=== PATIENT | male | born 1965 | race Caucasian/White ===

== ENCOUNTER → 2021-02-21 | Outpatient (CLI) | payer BC ==
--- NOTE | 2021-02-21 08:31 | US ---
EXAMINATION TYPE: US liver DATE OF EXAM: 02/21/2021 COMPARISON: NONE CLINICAL HISTORY: R74.8 elevated liver enzymes. EXAM MEASUREMENTS: Liver Length: 10.2 cm Gallbladder Wall: Surgically absent CBD: 0.2 cm Right Kidney: 10.8 x 5.2 x 5.1 cm Pancreas: Obscured by bowel gas Liver: wnl Gallbladder: Surgically absent Evidence for sonographic Hollingsworth's sign: no CBD: wnl Right Kidney: cyst 1.8 x 1.6 x 1.2cm IMPRESSION: Right renal cyst. Otherwise unremarkable study.
== END | disposition home or self-care (01) ==
LOC: RADUSWWP 07:22
PROVIDERS: ATTEND Internal Medicine
DX: N28.1 Cyst of kidney, acquired (principal); R74.8 Abnormal levels of other serum enzymes
CPT/HCPCS: 76705